=== PATIENT | female | born 1980 ===

== ENCOUNTER 2017-08-14 16:00 | Emergency (ER) | payer SELFPAY ==
--- NOTE | 2017-08-15 09:55 | ER ---
ADMIT: 08/14/2017 RM/LOC: ER [facility] MR#: [id number] [address] [place], [place] [id number] [address] [place] [address] Emergency Room Report SEX: F AGE: 36 : 1980 DATE: 08/14/2017 CHIEF COMPLAINT: Dizziness. HISTORY OF PRESENT ILLNESS: This is a 36-year-old female who presents to the ER with 6 days' duration of persistent dizziness. Admits to nausea, headache, weakness, numbness in the extremities, lightheadedness. She has not lost consciousness. Not passed out. Denies any hearing loss, ringing in ears, or ear pain. States she has never had anything like this in the past. She is typically independent. Has not had anything that exacerbates her dizziness. Denies any hemiparesis, problem with vision, abdominal pain, problems urinating, chest pain, shortness of breath. No past medical history. No surgical history. No medications. No allergies. COURSE IN THE EMERGENCY ROOM: The patient was seen and examined. GENERAL: Afebrile, nontoxic, no acute distress. HEENT: Normocephalic, atraumatic. Pupils are equal and reactive. No nystagmus. Pharynx is not erythematous. Tympanic membranes are pearly munoz. NECK: Soft and supple. There is no meningismus. HEART: Regular. CHEST: Clear. ABDOMEN: Soft, nontender. SKIN: Warm and dry. EXTREMITIES: Nontender. NEURO: She is alert and oriented. Speech is appropriate. Mood and affect within normal limits. Cranial nerves grossly intact. There is no evidence of acute CVA. She has a normal gait. Motor and sensation intact in the upper and lower extremities. CT of the head was obtained, no acute abnormalities. CBC remarkable for white count 2.7. Chemistries within normal limits. UA unremarkable. Urine preg was negative. While in the department, she did receive 50 mg of meclizine. She was given 10 mg of Reglan. She is feeling improved, feeling less dizzy. ADMIT: 08/14/2017 RM/LOC: [facility] MR#: [id number] [address] [id number] [address] [place] [address] Emergency Room Report SEX: F AGE: 36 : 1980 CLINICAL IMPRESSION: Dizziness. Certainly, given the low white count, kind of vague symptoms, certainly could be underlying vestibular neuronitis contributing to some of her dizziness. I would recommend conservative care with [id number] meclizine to see if she will improve over the next several days. DISPOSITION: Discharged home. Meclizine [id number] 25 mg p.o. daily. Tylenol or Motrin for pain. Increase fluids. Return with worsening signs or symptoms. Follow up with primary care provider. Discharged home in stable condition. JACK Sheehan / Gael Nichols MD / jessikal JOB #: [id number] CC: Gael Nichols MD, Attending Physician Freddy Bond MD, Family Physician
== END 2017-08-14 17:40 | disposition home or self-care (01) ==
LOC: ER 16:00
DX: R42 Dizziness and giddiness (principal)